=== PATIENT | male | born 1955 | race Caucasian/White ===

== ENCOUNTER 2016-04-03 13:55 | Emergency (ER) | payer BC ==
[2016-04-03] MEDS: NITROGLYCERIN 0.4MG SL TABLET #25 BTL SL PRN ×3 (14:26→14:34)
[2016-04-03 14:32] LABS: BASO % 0.4 % (0-6); EOS % 2.5 % (0-6); GRAN % 49.3 % (47-80); HEMATOCRIT 43.5 % (42.0-52.0); HEMOGLOBIN 14.6 gm/dl (14.0-18.0); LYMPH % 38.1 % (16-45); MEAN CELL VOLUME 94.8 fl (81-97); MEAN CORPUSCULAR HEMOGLOBIN 31.8 pg (27-33); MEAN CORPUSCULAR HGB CONC 33.6 g/dl (32-36); MEAN PLATELET VOLUME 9.1 fl (7.4-10.4); MONO % 9.7 % (0-9); PLATELET COUNT 371 K/uL (130-400); RED BLOOD COUNT 4.59 M/uL (4.40-5.70); RED CELL DISTRIBUTION WIDTH 13.7 % (11.5-14.5); WHITE BLOOD COUNT W/O DIFF 11.4 K/uL (4.2-12.2)
[2016-04-03] MEDS ORDERED: ASPIRIN 81 MG CHEWABLE TABLET PO ONE (14:36)
[2016-04-03] MEDS ORDERED: LORAZEPAM 2 MG/ML VIAL IV ONE (14:47)
[2016-04-03 14:51] LABS: ANION GAP 15.5 (7-16); BLOOD UREA NITROGEN 12 mg/dL (9-20); CARBON DIOXIDE 23.5 mmol/L (22-30); CREATINE PHOSPHOKINASE 125 U/L (55-170); CREATININE 0.9 mg/dL (0.66-1.25); EST GLOMERULAR FILTRATION RATE > 60 ml/min; GLUCOSE,RANDOM 99 mg/dL (70-110)
[2016-04-03] MEDS ORDERED: NITROGLYCERIN/D5W 50 MG in DEXTROSE 5 % IN WATER 1 BAG IV SCH ×2 (15:00)
[2016-04-03 15:02] LABS: CKMB 0.9 ug/L (0-6)
[2016-04-03 15:03] LABS: PARTIAL THROMBOPLASTIN TIME 23.7 SECONDS (24.5-39.1)
[2016-04-03 15:07] LABS: D-DIMER 0.25 mg/L FEU (0-0.59)
[2016-04-03] MEDS ORDERED: HEPARIN SODIUM/D5W 25,000 UNITS in DEXTROSE 5 % IN WATER 1 BAG IV SCH ×4 (15:15→15:45)
[2016-04-03] MEDS ORDERED: MORPHINE SULFATE 5 MG/ML PFS IVP ONE (15:15)
[2016-04-03] MEDS ORDERED: HEPARIN SODIUM 1000 UNIT/1 ML 10ML VIAL IVP ONE (15:15)
--- NOTE | 2016-04-03 15:18 | Emergency Department Record ---
History of Present Illness - General Chief Complaint: Chest Pain Stated Complaint: JAW AND ARM PAIN, LIGHT HEADED Time Seen by Provider: 04/03/16 14:03 Source: Patient, Family Mode of Arrival: Wheelchair Limitations: No limitations - History of Present Illness Initial Comments: pt was i working at computer when he developed chest pain , jaw pain and neck pain. mother and father had triple bypasses and pt smokes daily. pt has never had cardiac problems Complaint: Chest pain Onset/Timin -: Minutes(s) Onset: During rest Pain Location: Substernal Pain Radiation: Jaw/teeth, Other Severity: Mild Severity scale (1-10): 3 Quality: Heaviness Consistency: Constant Improves With: Nothing Worsens With: Nothing Anginal Symptoms: Diaphoresis, Nausea, Other Other Symptoms: Syncope Treatments Prior to Arrival: Aspirin, Other (pt states he took 2 extra strength excedrin) Treatment Prior to Arrival Comment:: Excedrin - Related Data Home Medications Medication Instructions Recorded Confirmed Last Taken No Home Med [NO HOME MEDS] 04/03/16 04/03/16 Unknown Allergies Allergy/AdvReac Type Severity Reaction Status Date / Time Penicillins Allergy Mild unknown Verified 04/03/16 14:07 Travel Screening - Travel/Exposure Within Last 30 Days Have you traveled within the last 30 days?: No Review of Systems Reviewed: No additional complaints except as noted below Constitutional: Reports: As per HPI. Denies: Chills, Fever, Malaise, Night sweats, Weakness, Weight change Eyes: Reports: As per HPI. Denies: Eye discharge, Eye pain, Photophobia, Vision change ENT: Reports: As per HPI. Denies: Congestion, Dental pain, Ear pain, Epistaxis , Hearing loss, Throat pain Respiratory: Reports: As per HPI. Denies: Cough, Dyspnea, Hemoptysis, Stridor, Wheezes Cardiovascular: Reports: As per HPI. Denies: Arrhythmia, Chest pain, Dyspnea on exertion, Edema, Murmurs, Orthopnea, Palpitations, Paroxysmal nocturnal dyspnea, Rheumatic Fever, Syncope Endocrine: Reports: As per HPI. Denies: Fatigue, Heat or cold intolerance, Polydipsia, Polyuria Gastrointestinal: Reports: As per HPI. Denies: Abdominal pain, Constipation, Diarrhea, Hematemesis, Hematochezia, Melena, Nausea, Vomiting Genitourinary: Reports: As per HPI. Denies: Dysuria, Frequency, Hematuria, Incontinence, Retention, Testicular pain, Testicular mass, Urgency Musculoskeletal: Reports: As per HPI. Denies: Arthralgia, Back pain, Gout, Joint swelling, Myalgia, Neck pain Skin: Reports: As per HPI. Denies: Bruising, Change in color, Change in hair/ nails, Lesions, Pruritus, Rash Neurological: Reports: As per HPI. Denies: Abnormal gait, Confusion, Headache, Numbness, Paresthesias, Seizure, Tingling, Tremors, Vertigo, Weakness Psychiatric: Reports: As per HPI. Denies: Anxiety, Auditory hallucinations, Depression, Homicidal thoughts, Suicidal thoughts, Visual hallucinations Hematological/Lymphatic: Reports: As per HPI. Denies: Anemia, Blood Clots, Easy bleeding, Easy bruising, Swollen glands Past Medical History - SOCIAL HISTORY Smoking Status: Current every day smoker Alcohol Use: Occassional Drug Use: None - RESPIRATORY Hx Respiratory Disorders: No - CARDIOVASCULAR Hx Cardio Disorders: No - NEURO Hx Neuro Disorders: No - GI Hx GI Disorders: No - Hx Genitourinary Disorders: No - ENDOCRINE Hx Endocrine Disorders: No - MUSCULOSKELETAL Hx Musculoskeletal Disorders: No - PSYCH Hx Psych Problems: No - HEMATOLOGY/ONCOLOGY Hx Hematology/Oncology Disorders: No Family Medical History Any Significant Family History?: Yes Hx Heart Disease: Father, Mother Physical Exam - General General Appearance: Alert, Oriented x3, Cooperative, Moderate distress - Head Head exam: Normal inspection - Eye Eye exam: Normal appearance, PERRL, EOMI Pupils: Normal accommodation - ENT ENT exam: Normal exam, Mucous membranes moist, Normal external ear exam, Normal orophraynx, TM's normal bilaterally Ear exam: Normal external inspection. negative: External canal tenderness Nasal Exam: Normal inspection. negative: Discharge, Sinus tenderness Mouth exam: Normal external inspection, Tongue normal Teeth exam: Normal inspection. negative: Dental caries Throat exam: Normal inspection. negative: Tonsillar erythema, Tonsillar exudate - Neck Neck exam: Normal inspection, Full ROM. negative: Tenderness - Respiratory Respiratory exam: Normal lung sounds bilaterally. negative: Respiratory distress - Cardiovascular Cardiovascular Exam: Regular rate, Normal rhythm, Normal heart sounds - GI/Abdominal GI/Abdominal exam: Soft, Normal bowel sounds. negative: Tenderness - Rectal Rectal exam: Deferred - exam: Deferred - Extremities Extremities exam: Normal inspection, Full ROM, Normal capillary refill. negative: Tenderness - Back Back exam: Reports: Normal inspection, Full ROM. Denies: Muscle spasm, Rash noted, Tenderness - Neurological Neurological exam: Alert, Normal gait, Oriented X3, Reflexes normal - Psychiatric Psychiatric exam: Normal affect, Normal mood - Skin Skin exam: Dry, Intact, Normal color, Warm Course Vital Signs 04/03/16 04/03/16 04/03/16 14:02 14:10 14:31 Temperature 97.6 F Pulse Rate 66 Pulse Rate [ 65 68 Leave Manager ] Respiratory 14 20 18 Rate Blood Pressure 119/86 Blood Pressure 123/103 148/92 [Left Arm] Pulse Ox 98 99 98 04/03/16 04/03/16 14:36 14:44 Temperature Pulse Rate Pulse Rate [ 69 71 Leave Manager ] Respiratory 18 20 Rate Blood Pressure Blood Pressure 135/90 130/90 [Left Arm] Pulse Ox 98 99 - Reevaluation(s) Reevaluation #1: 04/03/16 15:29 d/w dr friedman who accepted pt Reevaluation #2: 04/03/16 15:30 repeat ekg shows posterior mi. [facility] called back Reevaluation #3: 04/03/16 15:38 [facility] team activated at [facility] Medical Decision Making - Management Options MDM Management: Additional Work-up Planned (e.g. ADM/Transfer/OP Study) - Data Complexity MDM Data: Labs Ordered and/or Reviewed, X-Ray Ordered and/or Reviewed, EKG Ordered and/or Reviewed - Lab Data Result diagrams: 04/03/16 14:00 04/03/16 14:00 Lab Results 04/03/16 04/03/16 04/03/16 Range/Units 14:00 14:00 14:00 WBC 11.4 (4.2-12.2) K/uL RBC 4.59 (4.40-5.70) M/uL Hgb 14.6 (14.0-18.0) gm/dl Hct 43.5 (42.0-52.0) % MCV 94.8 (81-97) fl MCH 31.8 (27-33) pg MCHC 33.6 (32-36) g/dl RDW 13.7 (11.5-14.5) % Plt Count 371 (130-400) K/uL MPV 9.1 (7.4-10.4) fl Gran % 49.3 (47-80) % Lymphocytes % 38.1 (16-45) % Monocytes % 9.7 H (0-9) % Eosinophils % 2.5 (0-6) % Basophils % 0.4 (0-6) % PTT 23.70 L (24.5-39.1) SECONDS D-Dimer 0.25 (0-0.59) mg/L FEU Sodium 141 (136-145) mmol/L Potassium 3.9 (3.5-5.1) mmol/L Chloride 102 (98-107) mmol/L Carbon Dioxide 23.5 (22-30) mmol/L Anion Gap 15.5 (7-16) BUN 12 (9-20) mg/dL Creatinine 0.9 (0.66-1.25) mg/dL Estimated GFR > 60 ml/min Random Glucose 99 (70-110) mg/dL Calcium 9.3 (8.5-10.1) mg/dL Creatine Kinase 125 (55-170) U/L CK-MB (CK-2) 0.9 (0-6) ug/L Troponin I 0.156 H* (0.00-0.034) ng/mL - EKG Data -: EKG Interpreted by Wi EKG: Normal EKG - Radiology Data Radiology results: Report reviewed, Image reviewed Disposition Disposition: Transfer Clinical Impression: Acute [place] Qualifiers: Myocardial infarction ST status: ST elevation myocardial infarction Involved coronary artery: unspecified coronary artery Qualified Code(s): I21.3 - ST elevation (STEMI) myocardial infarction of unspecified site Disposition: Acute Care Hospital [facility] Reason For Transfer: [facility] Accepting Physician: dr friedman Time Discussed w/Accepting Physician: 15:35 Forms: Patient Portal Access
[2016-04-03 15:30] LABS: TROPONIN I 0.156 ng/mL (0.00-0.034)
--- NOTE | 2016-04-03 15:54 | Emergency Department Record ---
History of Present Illness - General Chief Complaint: Chest Pain Stated Complaint: JAW AND ARM PAIN, LIGHT HEADED Time Seen by Provider: 04/03/16 14:03 Source: Patient, Family Mode of Arrival: Wheelchair Limitations: No limitations - History of Present Illness Onset/Timin -: Minutes(s) Onset: During rest Pain Location: Substernal Pain Radiation: Jaw/teeth, Other Severity: Mild Severity scale (1-10): 3 Quality: Heaviness Consistency: Constant Improves With: Nothing Worsens With: Nothing Anginal Symptoms: Diaphoresis, Nausea, Other Other Symptoms: Syncope Treatments Prior to Arrival: Aspirin, Other (pt states he took 2 extra strength excedrin) Treatment Prior to Arrival Comment:: Excedrin - Related Data Home Medications Medication Instructions Recorded Confirmed Last Taken No Home Med [NO HOME MEDS] 04/03/16 04/03/16 Unknown Allergies Allergy/AdvReac Type Severity Reaction Status Date / Time Penicillins Allergy Mild unknown Verified 04/03/16 14:07 Travel Screening - Travel/Exposure Within Last 30 Days Have you traveled within the last 30 days?: No Review of Systems Constitutional: Reports: As per HPI. Denies: Chills, Fever, Malaise, Night sweats, Weakness, Weight change Eyes: Reports: As per HPI. Denies: Eye discharge, Eye pain, Photophobia, Vision change ENT: Reports: As per HPI. Denies: Congestion, Dental pain, Ear pain, Epistaxis , Hearing loss, Throat pain Respiratory: Reports: As per HPI. Denies: Cough, Dyspnea, Hemoptysis, Stridor, Wheezes Cardiovascular: Reports: As per HPI. Denies: Arrhythmia, Chest pain, Dyspnea on exertion, Edema, Murmurs, Orthopnea, Palpitations, Paroxysmal nocturnal dyspnea, Rheumatic Fever, Syncope Endocrine: Reports: As per HPI. Denies: Fatigue, Heat or cold intolerance, Polydipsia, Polyuria Gastrointestinal: Reports: As per HPI. Denies: Abdominal pain, Constipation, Diarrhea, Hematemesis, Hematochezia, Melena, Nausea, Vomiting Genitourinary: Reports: As per HPI. Denies: Dysuria, Frequency, Hematuria, Incontinence, Retention, Testicular pain, Testicular mass, Urgency Musculoskeletal: Reports: As per HPI. Denies: Arthralgia, Back pain, Gout, Joint swelling, Myalgia, Neck pain Skin: Reports: As per HPI. Denies: Bruising, Change in color, Change in hair/ nails, Lesions, Pruritus, Rash Neurological: Reports: As per HPI. Denies: Abnormal gait, Confusion, Headache, Numbness, Paresthesias, Seizure, Tingling, Tremors, Vertigo, Weakness Psychiatric: Reports: As per HPI. Denies: Anxiety, Auditory hallucinations, Depression, Homicidal thoughts, Suicidal thoughts, Visual hallucinations Hematological/Lymphatic: Reports: As per HPI. Denies: Anemia, Blood Clots, Easy bleeding, Easy bruising, Swollen glands Past Medical History - SOCIAL HISTORY Smoking Status: Current every day smoker Alcohol Use: Occassional Drug Use: None - RESPIRATORY Hx Respiratory Disorders: No - CARDIOVASCULAR Hx Cardio Disorders: No - NEURO Hx Neuro Disorders: No - GI Hx GI Disorders: No - Hx Genitourinary Disorders: No - ENDOCRINE Hx Endocrine Disorders: No - MUSCULOSKELETAL Hx Musculoskeletal Disorders: No - PSYCH Hx Psych Problems: No - HEMATOLOGY/ONCOLOGY Hx Hematology/Oncology Disorders: No Family Medical History Any Significant Family History?: Yes Hx Heart Disease: Father, Mother Physical Exam - General Limitations: No limitations Course Vital Signs 04/03/16 04/03/16 04/03/16 14:02 14:10 14:31 Temperature 97.6 F Pulse Rate 66 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 ] Respiratory 14 20 18 Rate Blood Pressure 119/86 Blood Pressure 123/103 148/92 [Left Arm] Pulse Ox 98 99 98 04/03/16 04/03/16 04/03/16 14:36 14:44 15:20 Temperature Pulse Rate Pulse Rate [ 69 71 71 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 ] Respiratory 18 20 20 Rate Blood Pressure Blood Pressure 135/90 130/90 135/85 [Left Arm] Pulse Ox 98 99 98 Medical Decision Making - Lab Data Result diagrams: 04/03/16 14:00 04/03/16 14:00 Lab Results 04/03/16 04/03/16 04/03/16 Range/Units 14:00 14:00 14:00 WBC 11.4 (4.2-12.2) K/uL RBC 4.59 (4.40-5.70) M/uL Hgb 14.6 (14.0-18.0) gm/dl Hct 43.5 (42.0-52.0) % MCV 94.8 (81-97) fl MCH 31.8 (27-33) pg MCHC 33.6 (32-36) g/dl RDW 13.7 (11.5-14.5) % Plt Count 371 (130-400) K/uL MPV 9.1 (7.4-10.4) fl Gran % 49.3 (47-80) % Lymphocytes % 38.1 (16-45) % Monocytes % 9.7 H (0-9) % Eosinophils % 2.5 (0-6) % Basophils % 0.4 (0-6) % PTT 23.70 L (24.5-39.1) SECONDS D-Dimer 0.25 (0-0.59) mg/L FEU Sodium 141 (136-145) mmol/L Potassium 3.9 (3.5-5.1) mmol/L Chloride 102 (98-107) mmol/L Carbon Dioxide 23.5 (22-30) mmol/L Anion Gap 15.5 (7-16) BUN 12 (9-20) mg/dL Creatinine 0.9 (0.66-1.25) mg/dL Estimated GFR > 60 ml/min Random Glucose 99 (70-110) mg/dL Calcium 9.3 (8.5-10.1) mg/dL Creatine Kinase 125 (55-170) U/L CK-MB (CK-2) 0.9 (0-6) ug/L Troponin I 0.156 H* (0.00-0.034) ng/mL Critical Care Time Critical Care Time: Yes Total Critical Care Time: 60 Disposition Clinical Impression: Acute [place] Qualifiers: Myocardial infarction ST status: ST elevation myocardial infarction Involved coronary artery: unspecified coronary artery Qualified Code(s): I21.3 - ST elevation (STEMI) myocardial infarction of unspecified site Disposition: Acute Care Hospital Transfer Forms: Patient Portal Access
--- NOTE | 2016-04-08 12:59 | RADIOLOGY REPORT ---
EXAM: PORTABLE CHEST HISTORY: ACUTE MID CHEST PAIN BEGINNING TODAY. TECHNIQUE: A single mobile semi-erect view of the chest was obtained. Comparison: None. FINDINGS: The cardiomediastinal silhouette is normal in size and configuration. The pulmonary vasculature is nondilated. The lungs and pleural spaces are clear though evaluation is slightly limited by superimposition of multiple cardiac monitoring leads. The osseous structures are intact. IMPRESSION: NO RADIOGRAPHIC EVIDENCE OF ACUTE CARDIOPULMONARY DISEASE. JOB NUMBER: [id number] MTDD
== END 2016-04-03 15:51 | disposition short-term general hospital (02) ==
LOC: ER 13:55
DX: I21.3 ST elevation (STEMI) myocardial infarction of unspecified site (principal); R11.0 Nausea; R61 Generalized hyperhidrosis; F17.200 Nicotine dependence, unspecified, uncomplicated
CPT/HCPCS: 99285 ×2; 96365; 96375; 82550; 85025; 85730; 82553; 84484; 80048; 85379; 71010; 93005; 93010; J2060; J2270

== ENCOUNTER 2018-11-19 07:31 | Day surgery (SDC) | payer BC ==
[2018-11-19] MEDS ORDERED: PROPOFOL 10 MG/ML VIAL IV ONE (07:32)
[2018-11-19] MEDS ORDERED: LIDOCAINE 2% MDV (20MG/ML) 20ML VIAL IV ONE (07:32)
--- NOTE | 2018-11-24 10:41 | Operative Note ---
SURGEON: Genoveva Tellez MD OPERATION: COLONOSCOPY. INDICATIONS: This is a 61-year-old male with history of colon polyps who presented for surveillance colonoscopy. Last colonoscopy was about 5 years ago. POSTOPERATIVE DIAGNOSES: 1. A 5 mm sessile polyp in the ascending colon that was removed by cold snare. 2. A 3 mm sessile polyp in the descending colon that was removed by cold biopsy forceps. 3. Three 2-3 mm sessile polyps in the rectum that were removed by cold biopsy forceps. 4. Otherwise normal colon and terminal ileum. ANESTHESIA: Sedation is per Anesthesia. Pulse oximetry was monitored throughout the procedure to maintain O2 saturation of 90% or greater. Supplemental oxygen was administered via nasal cannula. Cardiac and vital signs were monitored throughout the duration of the procedure, and they were stable. The procedure of colonoscopy and risks and alternatives of the procedure, including the risk of bleeding and perforation, among others, were explained to the patient who voiced understanding and agreed to have the procedure done. Physical examination was performed, and the patient was found stable for sedation. PROCEDURE: The patient was placed in the left lateral position. Sedation was initiated. A digital rectal exam was performed and showed some mild external hemorrhoids with no palpable rectal masses. An Olympus PCF-180AL colonoscope was then inserted into the rectum under direct visualization. It was advanced to the cecum without difficulty. The ileocecal valve and appendiceal orifice were identified and photographed. The colonic mucosa was carefully examined upon introduction of the colonoscope. There were no lesions noted. The ileocecal valve was intubated and terminal ileal mucosa was inspected for about 10 cm and it appeared normal. The colonoscope was then withdrawn while carefully examining the colonic mucosal surfaces. In the ascending colon was a 5 mm sessile polyp that was noted and was removed by cold snare. The rest of the ascending colon and transverse colon mucosa appeared normal. In the descending colon was a 3 mm sessile polyp that was noted and was removed by cold biopsy forceps. The rest of the descending colon and sigmoid colon mucosa appeared normal. In the rectum were three 2-3 mm sessile polyps that were noted and were removed by cold biopsy forceps. Retroflexion was normal. The colonoscope was then withdrawn and the procedure was terminated. The patient tolerated the procedure well without any immediate complications. The patient remained with stable vital signs and was transferred to the recovery room. RECOMMENDATIONS: 1. The patient should be on a high-fiber diet. 2. The patient is to have a repeat colonoscopy for surveillance in 3 or 5 or 10 years depending on the histology of the polyps. Thank you for allowing me to participate in the care of your patient. VIOLA
== END 2018-11-19 09:18 | disposition home or self-care (01) ==
LOC: HOP 07:31
PROVIDERS: ATTEND Internal Medicine Gastroenterology
DX: Z09 Encounter for follow-up examination after completed treatment for conditions other than malignant neoplasm (principal); Z86.010 Personal history of colon polyps; K63.5 Polyp of colon; K62.1 Rectal polyp; I10 Essential (primary) hypertension; E78.00 Pure hypercholesterolemia, unspecified